=== PATIENT | female | born 2005 | race Hispanic/Latino ===

== ENCOUNTER 2024-02-26 01:02 | Day surgery (SDC) | payer OTHER ==
[2024-02-26 01:21] VITALS: BMI 38.2
[2024-02-26] MEDS ORDERED: hydrALAZINE 20 MG/ML VIAL SLOW IVP PRN (02:02)
== END 2024-02-26 04:38 | disposition home or self-care (01) ==
LOC: CSHLD/OP 01:02
PROVIDERS: ATTEND Family Medicine
DX: O46.93 Antepartum hemorrhage, unspecified, third trimester (principal); O99.213 Obesity complicating pregnancy, third trimester; O00.01 Abdominal pregnancy with intrauterine pregnancy; Z3A.32 32 weeks gestation of pregnancy; Z79.899 Other long term (current) drug therapy; Z79.82 Long term (current) use of aspirin
CPT/HCPCS: 36415; 76815; 80053; 84702; 85025; 86850; 86900; 86901; 99283; 99284

== ENCOUNTER 2024-03-29 14:40 | Inpatient (IN) | payer OTHER ==
[2024-03-29] MEDS ORDERED: hydrALAZINE 20 MG/ML VIAL SLOW IVP PRN ×2 (15:10→17:16)
[2024-03-29 15:21] VITALS: BMI 38.2
[2024-03-29 15:42] LABS: Bilirubin Neg (Negative); Blood, Urine Negative (Negative); Clarity Slightly Cloudy (Clear); Glucose, Urine (Dipstick) Normal (Negative); Ketone, Urine 5 mg/dL (Negative); Leukocyte 100 (Negative); Nitrite Negative (Negative); Protein, Urine (Dipstick) 30 mg/dl (Neg-Trace); Specific Gravity, Urine 1.015 (1.005-1.030)
[2024-03-29 16:09] LABS: Bacteria/HPF 3+ HPF (None Seen); Mucous/LPF 3+ LPF (<2+)
[2024-03-29 16:10] LABS: CAUTI Indications for Culture Pregnancy; RBC/HPF None Seen HPF (0-3)
[2024-03-29 16:12] LABS: Urine Culture Reflex Yes Yes
[2024-03-29] MEDS: Cephalexin 500 MG CAP PO SCH (16:42)
[2024-03-29] MEDS ORDERED: Lidocaine 1% (PF) 30 ML VIAL SC PRN (17:16)
[2024-03-29] MEDS ORDERED: Ibuprofen 800 MG TAB PO PRN (17:16)
[2024-03-29] MEDS ORDERED: Carboprost 250 MCG/ML AMP IM PRN (17:16)
[2024-03-29] MEDS ORDERED: Ondansetron PF 4 MG/2 ML Vial IVP PRN (17:16)
[2024-03-29] MEDS ORDERED: Misoprostol 200 MCG TAB PR PRN (17:16)
[2024-03-29] MEDS ORDERED: Methylergonovine 0.2 MG/ML VIAL IM PRN (17:16)
[2024-03-29] MEDS ORDERED: Promethazine HCl 25 MG/ML VIAL IM PRN (17:16)
[2024-03-29] MEDS ORDERED: Tranexamic Acid 1,000 MG/10 ML VIAL IVP PRN (17:16)
[2024-03-29] MEDS ORDERED: Diphenoxylate HCl/Atropine Tablet PO PRN (17:16)
[2024-03-29] MEDS ORDERED: Acetaminophen 500 MG TAB PO PRN (17:16)
[2024-03-29] MEDS ORDERED: Lactated Ringer's 1,000 ML IV SCH (17:30)
[2024-03-29] MEDS ORDERED: Oxytocin 30 units/NS 500 ML 500 ML IV SCH ×2 (17:30)
[2024-03-29 18:03] LABS: Hematocrit 32.4 % (34.9-44.5); Hemoglobin 11.4 g/dL (12.0-15.5); Mean Corpuscular HGB CONC 35.2 g/dL (32.0-36.0); Mean Corpuscular Hemoglobin 31.7 pg (27.0-33.0); Mean Platelet Volume 11.2 fL (7.4-10.4); Platelet Count 189 10x3/uL (150-450); RBC Distribution Width 13.7 % (11.5-14.5); White Blood Cell (WBC) Count 10.9 10x3/uL (3.5-10.5)
[2024-03-29 18:39] LABS: HBsAg Index 0.27 S/CO (0-0.99); Hep B Surf Ag - L&D Non-Reactive S/CO (NonReactive)
[2024-03-29 18:41] LABS: Syphilis Antibody Nonreactive (Nonreactive); Syphilis Antibody Index 0.05 S/CO (<1.00 Non-Reactive)
[2024-03-30] MEDS ORDERED: Cephalexin 500 MG CAP PO SCH (05:00)
== END 2024-03-30 01:52 | disposition home health service (06) | DRG 832 ==
LOC: CSHLD/OP 14:40 → CSHLD 17:16
PROVIDERS: ADMIT Obstetrics & Gynecology; ATTEND Obstetrics & Gynecology
DX: O99.213 Obesity complicating pregnancy, third trimester (principal); N39.0 Urinary tract infection, site not specified; O23.43 Unspecified infection of urinary tract in pregnancy, third trimester; Z3A.37 37 weeks gestation of pregnancy; Z79.82 Long term (current) use of aspirin
CPT/HCPCS: 81001; 85027; 86780; 86850; 86900; 86901; 87086; 87340

== ENCOUNTER 2024-04-04 18:10 | Day surgery (SDC) | payer OTHER ==
[2024-04-04 19:43] LABS: Fetal Membranes Rupture No Membranes Rupture (No Rupture)
== END 2024-04-04 21:00 | disposition home or self-care (01) ==
LOC: CSHLD/OP 18:10
PROVIDERS: ATTEND Obstetrics & Gynecology
DX: Z03.71 Encounter for suspected problem with amniotic cavity and membrane ruled out (principal); O23.593 Infection of other part of genital tract in pregnancy, third trimester; N89.8 Other specified noninflammatory disorders of vagina; O23.43 Unspecified infection of urinary tract in pregnancy, third trimester; Z3A.38 38 weeks gestation of pregnancy
CPT/HCPCS: 76815; 84112; 99284